=== PATIENT | female | born 1955 | race Caucasian/White ===

== ENCOUNTER → 2022-08-22 | Outpatient (CLI) | payer MEDICARE ==
--- NOTE | 2022-08-22 15:42 | P.SLEEP ---
History of Present Illness DATE: 08/22/2022 CONSULTATION/NEW PATIENT EVALUATION HISTORY OF PRESENT ILLNESS/SLEEP-WAKE EVALUATION: 67 year old lady had been evaluated in the sleep center for possible obstructive sleep apnea hypopnea syndrome. Patient had sleep study about 16 years ago in another institution, she was not clearly explained about results of that sleeps test. SLEEP SCHEDULE: Usually sleep schedule from 9 PM to 6 AM . FALLING ASLEEP: No problems with falling to sleep, although patient has TV set and bedroom. DURING SLEEP: Patient usually sleeps on the side position. According to show family she snores and has witnessed episodes of sleep apneas. She wakes up from sleep up to 5 times with nocturia. Positive history of restless leg symptoms. No history of hypnogogical hallucinations, sleep paralysis, or cataplexy. DURING THE DAY/WAKE STATE: In the morning patient wake up tired, has problems with memory.. Sheridan sleepiness scale is significantly increased to 15. Patient takes several rest periods during the day. PAST MEDICAL HISTORY: Hypertension, fibromyalgia, also arthritis, acid reflux, hypothyroidism. PAST SURGICAL HISTORY: Treatment with radioactive iodine for Graves' disease, spinal surgery in March 2022, ovary ectomy, tubes removed. MEDICATIONS: Duloxetine 60 mg 2 capsules once a day, metoprolol 100 mg once a day, levothyroxine 100 g once a day, omeprazole 20 mg once a day, methocarbamol 750 mg as needed. SOCIAL HISTORY: Positive history of smoking for about 29 years up to 3 packs per day, quit smoking about 20 years ago, alcohol consumption occasional. FAMILY HISTORY: Heart problems, epilepsy, cancer, mental illness. REVIEW OF SYSTEMS: Snoring, multiple awakenings from sleep, significant excessive daytime sleepiness. No fevers. No double vision. No recent chest pain. No shortness of breath. No abdominal pain. No bleeding episodes. No blood in urine. No seizure episodes. PHYSICAL EXAMINATION: GENERAL: A pleasant patient without any distress. VITAL SIGNS: BP 121/82 , HR 69 , RR 16 , weight 244 pounds, height 5 foot 2-1/2 inches, body mass index 43.9 . HEENT: PERRJADEN EOMI. Evaluation of oropharynx showed tongue protrudes midline, low position of soft palate Mallampati 4. NECK: Supple. No JVD. Thyroid is not palpable. 16-3/4 inches in circumference. LUNGS: Clear to percussion and to auscultation. Good air exchange. No wheezing or rhonchi. HEART: S1, S2 regular. No murmurs, gallops or rubs. ABDOMEN: Soft and nontender. Bowel sounds are present. No organomegaly appr eciated. Obese EXTREMITIES: No clubbing or cyanosis. PETROLOGY TEACHER: Awake, alert, and oriented x3. Cranial nerves 2 to 7 intact. There is no fasciculation or atrophy noted. No focal deficits observed. ASSESSMENT: 1. Snoring, witnessed sleep apneas, extremely low position of soft palate Mallampati 4, white neck 16-3/4 inches in circumference, significant excessive daytime sleepiness Sheridan Sleepiness Scale increased to 15. Obstructive sleep apnea hypopnea syndrome. 2. Obesity body mass index 43.9. 3 restless leg symptoms. 4. Hypertension. 5 history of fibromyalgia. 6. History of Graves' disease treated with radioactive iodine. Hypothyroidism. 7. Acid reflux. 8. . Arthritis. 9. Status post spinal surgery 03/14/2022. 10. Status post ovary ectomy and tubal removed. PLAN: 1. Polysomnography for evaluation of patient's breathing during sleep. 2. CPAP/BiPAP titration if sleep study confirms obstructive sleep apnea- hypopnea syndrome. 3. Preferable position during sleep on the side. 4. No driving if patient feels any sleepiness. Patient is aware of civil and criminal liability for unsafe driving. 5. Sleep hygiene with regular sleep time for at least 7.5-8 hours. 6. Watching and losing weight. Thank you very much for referring this patient for consultation. Sincerely, Ino Moise MD, PhD, FAASM. Diplomat of [place] [employer], Sleep Medicine Board by [place] [employer] [place] [employer] Objective C Developer of [facility] [place] [facility] Note - Sleep Note Sleep Note: Temperature: Pulse Rate: Respiratory Rate: Blood Pressure: SpO2: Height: Weight: BMI: Neck Circumference:
== END ==
LOC: SLEEP 14:51
PROVIDERS: ATTEND Internal Medicine
DX: G47.33 Obstructive sleep apnea (adult) (pediatric) (principal); G25.81 Restless legs syndrome; I10 Essential (primary) hypertension; Z87.39 Personal history of other diseases of the musculoskeletal system and connective tissue; E03.9 Hypothyroidism, unspecified; Z86.39 Personal history of other endocrine, nutritional and metabolic disease; K21.9 Gastro-esophageal reflux disease without esophagitis; M19.90 Unspecified osteoarthritis, unspecified site; Z98.890 Other specified postprocedural states; Z90.722 Acquired absence of ovaries, bilateral
CPT/HCPCS: 99202